=== PATIENT | male | born 1995 | race Caucasian/White ===

== ENCOUNTER 2017-04-20 22:48 | Emergency (ER) | payer SELFPAY ==
[2017-04-20 22:58] VITALS: BP 137/67; PULSE 92; TEMP 98.7; BMI 23.6
[2017-04-21] MEDS ORDERED: PSEUDOEPHEDRINE HCL 30 MG TABLET PO STA (01:08)
[2017-04-21] MEDS ORDERED: AZITHROMYCIN 250 MG TABLET (FP) PO STA (01:08)
[2017-04-21] MEDS ORDERED: IBUPROFEN 400 MG TABLET (FP) PO ONE ×2 (01:08→01:21)
--- NOTE | 2017-04-21 01:08 | PDOC ---
History of Present Illness - General History Source: Patient, Spouse Exam Limitations: No Limitations - History of Present Illness Initial Comments: 04/21/17 01:13 The patient is a 21 year old male, accompanied by , with significant past medical history of cigarette smoking, who presents to the emergency department with shortness of breath and flu symptoms for 4 days. The patient reports subjective fever, chills, generalized weakness, decreased sleep and productive cough with green sputum. notes that the patient's son was recently sick. Patient states that he quit smoking to try and alleviate symptoms with minimal relief. <Cas Quiles - Last Filed: 04/21/17 01:13> - General History Source: Patient <Kenny Goncalves - Last Filed: 04/21/17 01:44> - General Chief Complaint: Shortness of Breath Stated Complaint: SHORTNESS OF BREATH Time Seen by Provider: 04/21/17 01:00 Past History <Cas Quiles - Last Filed: 04/21/17 01:13> - Past Medical History Other medical history: Denies - Immunization History Immunization Up to Date: Yes - Psycho/Social/Smoking Cessation Hx Suicidal Ideation: No Smoking History: Current every day smoker Have you smoked in the past 12 months: No Number of Cigarettes Smoked Daily: 1 Information on smoking cessation initiated: No Hx Alcohol Use: No Drug/Substance Use Hx: No Substance Use Type: None <Kenny Goncalves - Last Filed: 04/21/17 01:44> - Past Medical History Allergies/Adverse Reactions: Allergies Allergy/AdvReac Type Severity Reaction Status Date / Time No Known Allergies Allergy Verified 04/20/17 22:55 Home Medications: Ambulatory Orders Azithromycin [Zithromax -] 250 mg PO UTDICT #6 tab 04/21/17 Ibuprofen 800 mg PO TID #30 tablet 04/21/17 Pseudoephedrine HCl [Sudafed] 30 mg PO Q6H #20 tablet 04/21/17 Review of Systems - Review of Systems Able to Perform ROS?: Yes Comments:: 04/21/17 01:13 CONSTITUTIONAL: Present: fever, chills, fatigue, decreased sleep, generalized weakness. EYES: Absent: visual changes ENT: Absent: ear pain, no sore throat CARDIOVASCULAR: Absent: chest pain, no palpitations RESPIRATORY: Present: cough, SOB GI: Absent: abdominal pain, no nausea, no vomiting, no constipation, no diarrhea GENITOURINARY: Absent: dysuria, no frequency, no hematuria MUSCULOSKELETAL: Absent: back pain, no arthralgia, no myalgia SKIN: Absent: rash <Cas Quiles - Last Filed: 04/21/17 01:13> *Physical Exam - Vital Signs Last Vital Signs Temp Pulse Resp BP Pulse Ox 98.7 F 92 H 20 137/67 98 04/20/17 22:55 04/20/17 22:55 04/20/17 22:55 04/20/17 22:55 04/20/17 22:55 - Physical Exam Comments: 04/21/17 01:13 GENERAL: Well-appearing, well-nourished. No apparent distress. HEENT: Normocephalic, atraumatic. PERRL, EOM intact. CARDIOVASCULAR: Normal S1, S2. Regular rate and rhythm. PULMONARY: Clear to auscultation bilaterally. ABDOMEN: Soft, non-distended, non-tender. EXTREMITIES: Normal ROM in all four extremities. No gross deformities. SKIN: Warm, dry. No rash NEUROLOGICAL: No focal neurological deficits. <Cas Quiles - Last Filed: 04/21/17 01:13> - Vital Signs Last Vital Signs Temp Pulse Resp BP Pulse Ox 98.7 F 92 H 20 137/67 98 04/20/17 22:55 04/20/17 22:55 04/20/17 22:55 04/20/17 22:55 04/20/17 22:55 <Kenny Goncalves - Last Filed: 04/21/17 01:44> Medical Decision Making - Medical Decision Making 04/21/17 01:11 Dr. Goncalves: The scribe's documentation has been prepared under my direction and personally reviewed by me in its entirery. I confirm that the note above accurately reflects all work, treatment, procedures, and medical decision making performed by me. <Kenny Goncalves - Last Filed: 04/21/17 01:44> *DC/Admit/Observation/Transfer - Attestations Scribe Attestion: 04/21/17 01:14 Documentation prepared by Cas Quiles, acting as medical assistant supervisor for Kenny Goncalves DO. <Cas Quiles - Last Filed: 04/21/17 01:13> - Discharge Dispostion Admit: No <Kenny Goncalves - Last Filed: 04/21/17 01:44> Diagnosis at time of Disposition: Bronchitis Upper respiratory infection Qualifiers: URI type: unspecified URI Qualified Code(s): J06.9 - Acute upper respiratory infection, unspecified - Discharge Dispostion Disposition: HOME Condition at time of disposition: Stable - Prescriptions Prescriptions: Ibuprofen 800 mg PO TID #30 tablet Pseudoephedrine HCl [Sudafed] 30 mg PO Q6H #20 tablet Azithromycin [Zithromax -] 250 mg PO UTDICT #6 tab - Referrals Referrals: Cindy Lane MD [Staff Physician] - - Patient Instructions Printed Discharge Instructions: Acute Bronchitis, DI for Viral Upper Respiratory Infection -- Adult - Post Discharge Activity Work/School Note: Back to Work
[2017-04-21] MEDS ORDERED: PSEUDOEPHEDRINE HCL 60 MG TABLET ONE (01:21)
[2017-04-21] MEDS ORDERED: AZITHROMYCIN 250 MG TABLET (FP) ONE (01:21)
== END 2017-04-21 02:04 | disposition home or self-care (01) ==
LOC: JER 22:48
DX: J20.9 Acute bronchitis, unspecified (principal); J06.9 Acute upper respiratory infection, unspecified
CPT/HCPCS: 99281-25

== ENCOUNTER 2017-10-30 08:08 | Emergency (ER) | payer OTHER ==
[2017-10-30 08:26] VITALS: BP 122/72; PULSE 75; TEMP 98.5; BMI 24.2
--- NOTE | 2017-10-30 09:03 | PDOC ---
History of Present Illness - General Chief Complaint: Eye Problem Stated Complaint: EYE PAIN Time Seen by Provider: 10/30/17 08:17 History Source: Patient Exam Limitations: No Limitations - History of Present Illness Initial Comments: 10/30/17 08:58 CHIEF COMPLAINT: Pain and drainage to the left eye. HISTORY OF PRESENT ILLNESS: Patient is a 21 y/o male with no significant medical history, currently on no medication woke up today with pain, drainage unable to upper left eye reports pruritus last night and rubbing eye. Also with nasal congestion for 2 weeks. Denies fevers. Pain to left side of face. REVIEW OF SYSTEMS: GENERAL/CONSTITUTIONAL: No fever or chills. No weakness. No weight change. HEAD, EYES, EARS, NOSE AND THROAT: No change in vision. Drainage and pruritus to right eye. No ear pain or discharge. No sore throat. RESPIRATORY: No cough, wheezing, or hemoptysis. SKIN : No rash or easy bruising. NEUROLOGIC: No headache, vertigo, loss of consciousness, or loss of sensation. HEMATOLOGIC/LYMPHATIC: No lymphadenopathy ALLERGIC/IMMUNOLOGIC: No hives or skin allergy. No latex allergy. PHYSICAL EXAM: GENERAL: The patient is awake, alert, and fully oriented, in no acute distress. HEAD: Normal with no signs of trauma. EYES: Pupils equal, round and reactive to light, extraocular movements intact, sclera anicteric, conjunctiva injected, extending to limbus after fluorescein staining, there is also a small corneal abrasion noted at 9:00 to left pupil. Left frontal sinus pressure ENT: Ears normal, nares patent, oropharynx clear without exudates. Moist mucous membranes. NECK: Normal range of motion, supple without lymphadenopathy, JVD, or masses. LUNGS: Breath sounds equal, clear to auscultation bilaterally. No wheezes, and no crackles. NEUROLOGICAL: Cranial nerves II through XII grossly intact. Normal speech, normal gait. SKIN: No erythema no facial edema. Warm, Dry, normal turgor, no rashes or lesions noted. Past History - Past Medical History Allergies/Adverse Reactions: Allergies Allergy/AdvReac Type Severity Reaction Status Date / Time No Known Allergies Allergy Verified 10/30/17 08:16 Home Medications: Ambulatory Orders Amox-Tr/K Cl [Augmentin - 875Mg Tablet] 1 tab PO BID #14 tablet 10/30/17 Fluticasone Prop 0.05% Nasal [Flonase -] 1 - 2 spray NS BID #1 spray.pump Tobramycin Sulf/Dexamethasone [Tobradex *Eye Drops*] 1 drop OS Q4HWA #1 drops CVA: No COPD: No - Immunization History Immunization Up to Date: Yes - Suicide/Smoking/Psychosocial Hx Smoking History: Never smoked Have you smoked in the past 12 months: No Number of Cigarettes Smoked Daily: 1 Hx Alcohol Use: Yes (SOCIAL) Drug/Substance Use Hx: No Substance Use Type: None *Physical Exam - Vital Signs Last Vital Signs Temp Pulse Resp BP Pulse Ox 98.5 F 75 20 122/72 98 10/30/17 08:13 10/30/17 08:13 10/30/17 08:13 10/30/17 08:13 10/30/17 08:13 Medical Decision Making - Medical Decision Making 10/30/17 09:02 A/P: Patient here for evaluation of drainage and pain with pruritus to left eye patient with conjunctivitis, corneal abrasion and sinusitis with DC patient on tobramycin eyedrops and Augmentin, follow-up with ophthalmology I discussed the physical exam findings, ancillary test results and final diagnoses with the patient. I answered all of the patient's questions. The patient was satisfied with the care received and felt comfortable with the discharge plan and treatment plan. The patient will call to arrange follow-up and will return to the Emergency Department with any new, persistent or worsening symptoms. *DC/Admit/Observation/Transfer Diagnosis at time of Disposition: Corneal abrasion Qualifiers: Encounter type: initial encounter Laterality: left Qualified Code(s): S05.02XA - Injury of conjunctiva and corneal abrasion without foreign body, left eye, initial encounter Sinusitis Qualifiers: Sinusitis location: frontal Chronicity: acute Recurrence: non-recurrent Qualified Code(s): J01.10 - Acute frontal sinusitis, unspecified Conjunctivitis Qualifiers: Conjunctivitis type: acute Acute conjunctivitis type: unspecified Laterality: left Qualified Code(s): H10.32 - Unspecified acute conjunctivitis, left eye - Discharge Dispostion Disposition: HOME Condition at time of disposition: Good Admit: No - Prescriptions Prescriptions: Amox-Tr/K Cl [Augmentin - 875Mg Tablet] 1 tab PO BID #14 tablet Fluticasone Prop 0.05% Nasal [Flonase -] 1 - 2 spray NS BID #1 spray.pump Tobramycin Sulf/Dexamethasone [Tobradex *Eye Drops*] 1 drop OS Q4HWA #1 drops - Referrals Referrals: Michael Wyatt [Staff Physician] - - Patient Instructions Printed Discharge Instructions: Corneal Abrasion Additional Instructions: No rubbing or scratching eye Recommend follow-up with ophthalmology. [facility] - Post Discharge Activity Forms/Work/School Notes: Back to Work
== END 2017-10-30 09:08 | disposition home or self-care (01) ==
LOC: JERFT 08:08 → JER 08:08 → JERFT 09:08
DX: H10.32 Unspecified acute conjunctivitis, left eye (principal); S05.02XA Injury of conjunctiva and corneal abrasion without foreign body, left eye, initial encounter; J01.10 Acute frontal sinusitis, unspecified
CPT/HCPCS: 99281-25

== ENCOUNTER 2020-07-06 16:03 | Emergency (ER) | payer SELFPAY ==
[2020-07-06] MEDS ORDERED: TETRACAINE 0.5% OPHTH SOLN 2 ML BOTTLE ONE (16:08)
[2020-07-06] MEDS ORDERED: FLUORESCEIN NA 1 EA STRIP ONE (16:09)
--- OUTSIDE RECORDS SUMMARY | 2020-07-06 16:10 | XMS ---
:1995 Author Organization [facility] Name Relationship Address Phone ASI Unavailable [address] [place] [address] FENG CROOKS [address] [place] [address] FENG CROOKS Mother [address] [place] [address] Re-disclosure Warning The records that you are about to access may contain information from federally- assisted alcohol or drug abuse programs. If such information is present, then the following federally mandated warning applies: This information has been disclosed to you from records protected by federal confidentiality rules (42 CFR part 2). The federal rules prohibit you from making any further disclosure of this information unless further disclosure is expressly permitted by the written consent of the person to whom it pertains or as otherwise permitted by 42 CFR part 2. A general authorization for the release of medical or other information is NOT sufficient for this purpose. The Federal rules restrict any use of the information to criminally investigate or prosecute any alcohol or drug abuse patient.The records that you are about to access may contain highly sensitive health information, the redisclosure of which is protected by Article 27-F of the [place] Public Health law. If you continue you may haveaccess to information: Regarding HIV / AIDS; Provided by facilities licensed or operated by the [place] Office of Mental Health; or Provided by the [place] Office for People With Developmental Disabilities. If such information is present, then the following [place] [facility] mandated warning applies: This information has been disclosed to you from confidential records which are protected by state law. State law prohibits you from making any further disclosure of this information without the specific written consent of the person to whom it pertains, or as otherwise permitted by law. Any unauthorized further disclosure in violation of state law may result in a fine or retirement sentence or both. A general authorization for the release of medical or other information is NOT sufficient authorization for further disclosure. Insurance Providers Payer name Policy type Policy ID Covered Covered libertarian's Policy P lilli / Coverage libertarian ID relationship to Méndez Inf ormation type méndez SELF PAY SP INSURANCE [facility] [id number] SP [id number] EXCHANGE
[2020-07-06 16:14] VITALS: BP 116/70; PULSE 90; TEMP 98.9; BMI 22.1
[2020-07-06] MEDS ORDERED: TETRACAINE 0.5% HCL 0.6ML DROPPER.BOTTLE OU ONE (16:27)
[2020-07-06] MEDS ORDERED: METOCLOPRAMIDE HCL INJECTION 10 MG/2 ML VIAL IVPUSH ONE (16:27)
[2020-07-06] MEDS ORDERED: SODIUM CHLORIDE 0.9% 1000 ML INFUS.BAG IV ONE ×2 (16:28→18:04)
--- NOTE | 2020-07-06 16:34 | PDOC ---
History of Present Illness - General Chief Complaint: Eye Problem Stated Complaint: LEFT EYE PAIN Time Seen by Provider: 07/06/20 16:06 History Source: Patient Exam Limitations: No Limitations - History of Present Illness Initial Comments: 07/06/20 16:28 24 yo male h/o migraines, here with c/o headache and bilat eye pain, with photophobia. pt states for several years he awakes in early am with eye pain, usually goes away later in day. did see an opthomologist in earlier years, but hadn't seen in many years because usually sxs self resolve. he does report these episodes every few weeks however. has had daily headaches, worse in am for last week. no f/c no head trauma. no mod factors. does get associated tearing with headaches, . here today yola sxs didn't improve when he went outside, felt more sensitive to light. no f/c no trauma to eye. does not wear contacts. no h/o rogelio sore. does not have a nuerologist. took tylenol before arrival, headache slighlty better but still has light sensitivity. Past History - Medical History Allergies/Adverse Reactions: Allergies Allergy/AdvReac Type Severity Reaction Status Date / Time No Known Allergies Allergy Verified 07/06/20 16:06 Home Medications: Ambulatory Orders Acetaminophen 1,000 mg PO DAILY 07/06/20 Polymyxin B Sulfate/Tmp [Polytrim Opthalmic Solution -] 1 drop OP Q3H 10 Days #120 drops 07/06/20 CVA: No COPD: No Other medical history: MIGRAINE HEADACHE - Immunization History Immunization Up to Date: Yes - Psycho-Social/Smoking History Smoking History: Current every day smoker Have you smoked in the past 12 months: No Number of Cigarettes Smoked Daily: 3 Information on smoking cessation initiated: Yes - Substance Abuse Hx (Audit-C & DAST Scrn) How often the patient has a drink containing alcohol: 2-4 times / month How often the patient has six or more drinks on one occasion: Never Score: In Men: 4 or > Positive; In Women: 3 or > Positive: 2 Screen Result (Pos requires Nsg. Audit-10AR): Negative In the last yr the pt used illegal drug/Rx for NonMed reason: No Score: Yes response is considered Positive: 0 Screen Result (Positive result requires Nsg. DAST-10): Negative Review of Systems - Review of Systems Constitutional: No: Chills, Fever HEENTM: Yes: Eye Pain, Tearing Respiratory: No: Cough, Shortness of Breath Cardiac (ROS): No: Chest Pain, Edema ABD/GI: No: Nausea, Vomiting : No: Burning, Dysuria, Discharge Musculoskeletal: No: Back Pain, Joint Pain Neurological: Yes: Headache. No: Numbness, Paresthesia, Tingling, Weakness Psychiatric: No: Depression, Frequent Crying, Stressors, Sleep Pattern Change Hematologic/Lymphatic: No: Anemia, Easy Bleeding All Other Systems: Reviewed and Negative *Physical Exam - Vital Signs Last Vital Signs Temp Pulse Resp BP Pulse Ox 98.9 F 90 16 116/70 100 07/06/20 16:05 07/06/20 16:05 07/06/20 16:05 07/06/20 16:05 07/06/20 16:05 - Physical Exam 07/06/20 16:32 awake alert bilat eye conj injection. left greater than right. no fb visualized. no flourescin uptake with sun lamp. eomi. no sinus tenderness. bilat nasal turbinate enlargement. no post pharynx redness or exudate. lungs clear bilat heart rrr no mrg abd soft nt nd ext wwp. no edema. no calf tenderness. skin warm and dry. 07/06/20 16:47 ED Treatment Course - LABORATORY CBC & Chemistry Diagram: 07/06/20 16:50 07/06/20 16:50 - RADIOLOGY Radiology Studies Ordered: Category Date Time Status HEAD CT WITHOUT CONTRAST [CT] Stat CT Scan 07/06/20 16:28 Ordered Medical Decision Making - Medical Decision Making 07/06/20 16:33 24 yo male with headaches, migraines, and frequent eye pain. differential ocular dry eye, ulceration ( however negative flourescin uptake) cluster headaches, mass , plan oxygen, treat headache with medication . ct head r/o intracranial process due to am sxs. eye sensitivity improved with tetracine. will treat prophylactically with tears, and abx drops in the eye. pt will require nuero and optho follouwp. 07/06/20 18:03 pt labs noted for mild hyponatremia, and mild LFT evaluation. told to followup with primary doctor for repeat labs in 24 - 48 hours. if you do not have one you can go to the [facility] and ask to be seen in the resident clinic under dr paz. see referall information and call to schedule. 07/06/20 18:07 Discharge - Discharge Information Problems reviewed: Yes Clinical Impression/Diagnosis: Migraine headache, Conjunctivitis, Hyponatremia Condition: Improved Disposition: HOME - Admission No - Additional Discharge Information Prescriptions: Polymyxin B Sulfate/Tmp [Polytrim Opthalmic Solution -] 1 drop OP Q3H 10 Days #120 drops - Follow up/Referral Referrals: Jackson Howard MD [Staff Physician] - Katia Livingston MD [Staff Physician] - Mark Novoa MD [Staff Physician] - Bernardo Taylor MD [Staff Physician] - - Patient Discharge Instructions Patient Printed Discharge Instructions: Conjunctivitis (Alternative Therapy), Migraine -- Adult, DI for Hyponatremia Additional Instructions: Your CT of the head is normal. Your labs are also unremarkable. You should apply Polytrim drops to both eyes 3 times daily while awake for 10 days. You should also follow-up with an spareribs trimmer see referral information and call to schedule appointment to be seen within 1 to 2 weeks. In addition you should follow-up with a neurologist for your headaches. You should call to be seen within 1 to 2 weeks see referral information for Dr. Thomson call to schedule a ppointment if you do not have insurance or this is not covered by insurance you can start with the internal medicine clinic at [facility] under referral dr Lee Paz. see phone number. . for your headache you can take motrin 600 mg every 8 hours as needed for pain. if you do not have a primary doctor, one you can go to the [facility] and ask to be seen in the resident clinic under dr paz. see referall information for dr paz and call to schedule. - Post Discharge Activity
[2020-07-06] MEDS ORDERED: METOCLOPRAMIDE HCL INJECTION 10 MG/2 ML VIAL ONE (16:44)
[2020-07-06 17:19] LABS: BASO % 0.5 % (0-2.0); EOS % 1.4 % (0-4.5); HEMATOCRIT 49.2 % (35.4-49); HEMOGLOBIN 16.5 GM/dl (11.7-16.9); LYMPH % 20.2 % (8-40); MCHC 33.6 g/dl (32.0-35.9); MEAN CELL VOLUME 95.4 fl (80-96); MEAN PLT VOLUME 9.2 fl (7.5-11.1); MONO % 5.8 % (3.8-10.2); NEUT % 72.1 % (42.8-82.8); PLATELET COUNT 275 K/MM3 (134-434); RBC 5.15 M/mm3 (4.00-5.60); RDW 12.4 % (11.9-15.9); WHITE BLOOD COUNT 8.1 K/mm3 (4.0-10.8)
[2020-07-06 17:27] LABS: ALBUMIN 4.7 g/dl (3.4-5.0); BILIRUBIN,TOTAL 1.1 mg/dl (0.2-1); CALCIUM 9.6 mg/dl (8.5-10); CREATININE 0.6 mg/dl (0.55-1.3); POTASSIUM 3.5 mmol/L (3.5-5.1); TOT PROT 7.8 g/dl (6.4-8.2)
[2020-07-06] MEDS ORDERED: KETOROLAC TROMETHAMINE 30 MG/1 ML VIAL IVPUSH ONE (18:04)
[2020-07-06] MEDS ORDERED: KETOROLAC TROMETHAMINE 30 MG/1 ML VIAL ONE (18:14)
[2020-07-06 19:33] LABS: CALCIUM 8.1 mg/dl (8.5-10); CREATININE 0.6 mg/dl (0.55-1.3); POTASSIUM 3.7 mmol/L (3.5-5.1)
== END 2020-07-06 19:59 | disposition home or self-care (01) ==
LOC: FER 16:03
PROC: 3E0333Z Introduction of Anti-inflammatory into Peripheral Vein, Percutaneous Approach (ICD-10-PCS; principal; 2020-07-06)
PROC: 3E033GC Introduction of Other Therapeutic Substance into Peripheral Vein, Percutaneous Approach (ICD-10-PCS; 2020-07-06)
DX: H10.32 Unspecified acute conjunctivitis, left eye (principal); G43.909 Migraine, unspecified, not intractable, without status migrainosus
CPT/HCPCS: 36415; 70450-TC; 80048; 80053; 85025; 99284-25

== ENCOUNTER 2022-01-31 12:50 | Emergency (ER) | payer OTHER ==
[2022-01-31] MEDS ORDERED: IBUPROFEN 600 MG TABLET (FP) PO ONE ×2 (13:19→13:24)
[2022-01-31] MEDS ORDERED: LIDOCAINE 5% TOPICAL PATCH TP ONE (13:22)
[2022-01-31 13:24] VITALS: BP 107/63; PULSE 70; TEMP 97.9; BMI 26.6
[2022-01-31] MEDS ORDERED: LIDOCAINE 5% TOPICAL PATCH ONE (13:25)
[2022-01-31 13:54] LABS: EPITHELIAL CELLS RARE /hpf; URINE MUCUS 2+
[2022-01-31] MEDS ORDERED: LIDOCAINE PATCH REMOVAL MC SCH (22:00)
== END 2022-01-31 14:31 | disposition home or self-care (01) ==
LOC: FER 12:50
DX: R07.81 Pleurodynia (principal)
CPT/HCPCS: 71101-TC-LT-FY; 81003; 81015; 87086; 99284-25

== ENCOUNTER 2023-11-23 19:38 | Emergency (ER) | payer OTHER ==
[2023-11-23 20:04] VITALS: BP 113/63; PULSE 96; RESP 17; TEMP 100; BMI 22.1
[2023-11-23] MEDS ORDERED: ACETAMINOPHEN 325 MG TABLET (FP) ONE (20:06)
[2023-11-23] MEDS: ACETAMINOPHEN 325 MG TABLET (FP) PO ONE (20:54)
== END 2023-11-23 22:18 | disposition home or self-care (01) ==
LOC: FER 19:38
DX: R05.9 Cough, unspecified (principal); R07.0 Pain in throat; R50.9 Fever, unspecified; R11.0 Nausea; R09.81 Nasal congestion; U07.1 COVID-19
CPT/HCPCS: 0241U-QW; 99283-25

== ENCOUNTER 2023-12-03 09:42 | Emergency (ER) | payer OTHER ==
[2023-12-03 09:50] VITALS: BP 113/41; PULSE 65; RESP 20; TEMP 98; BMI 22.1
[2023-12-03] MEDS ORDERED: DOXYCYCLINE HYCLATE 100 MG CAPSULE PO ONE (11:03)
[2023-12-03] MEDS: DOXYCYCLINE HYCLATE 100 MG CAPSULE PO ONE (11:26)
[2023-12-03 17:12] LABS: SYPHILIS W/ RPR CONF NON-REACTIVE (NONREACTIVE)
[2023-12-03 17:41] LABS: HIV INTERPRETATION NEGATIVE (NEGATIVE)
== END 2023-12-03 11:35 | disposition home or self-care (01) ==
LOC: FER 09:42
DX: R30.0 Dysuria (principal); R36.9 Urethral discharge, unspecified
CPT/HCPCS: 36415; 81003; 86780; 87086; 87389; 87491; 87591; 96372; 99284-25

== ENCOUNTER 2024-03-15 09:29 | Emergency (ER) | payer OTHER ==
[2024-03-15 09:52] VITALS: BP 105/70; PULSE 98; RESP 20; TEMP 99.8; BMI 24.3
[2024-03-15] MEDS ORDERED: ACETAMINOPHEN 500 MG TABLET (FP) ONE (09:53)
[2024-03-15] MEDS: ACETAMINOPHEN 500 MG TABLET (FP) PO ONE (09:59)
[2024-03-15 12:21] LABS: THROAT:GRP A STREP NOT DETECTED (NOTDETECTED)
== END 2024-03-15 10:18 | disposition home or self-care (01) ==
LOC: FER 09:29
DX: R68.83 Chills (without fever) (principal); J06.9 Acute upper respiratory infection, unspecified; Z20.822 Contact with and (suspected) exposure to COVID-19
CPT/HCPCS: 0241U-QW; 87651; 99283-25

== ENCOUNTER 2024-05-07 21:25 | Emergency (ER) | payer OTHER ==
[2024-05-07 21:47] VITALS: BP 109/88; PULSE 84; RESP 16; TEMP 98.2; BMI 24.3
[2024-05-07] MEDS ORDERED: DOXYCYCLINE HYCLATE 100 MG CAPSULE PO ONE (21:48)
[2024-05-07] MEDS: DOXYCYCLINE HYCLATE 100 MG CAPSULE PO ONE (21:54)
== END 2024-05-07 22:09 | disposition home or self-care (01) ==
LOC: FER 21:25
DX: R35.0 Frequency of micturition (principal); R30.0 Dysuria; R10.30 Lower abdominal pain, unspecified; Z20.2 Contact with and (suspected) exposure to infections with a predominantly sexual mode of transmission
CPT/HCPCS: 36415; 81003; 87491; 87591; 99284-25